=== PATIENT | female | born 1980 | race Caucasian/White ===

== ENCOUNTER 2023-05-12 10:59 | Emergency (ER) | payer BC ==
[2023-05-12] MEDS ORDERED: Acetaminophen 500 MG Tab PO STA (11:37)
[2023-05-12] MEDS ORDERED: Ketorolac 30 MG/ML SDV IVPUSH STA (11:37)
[2023-05-12] MEDS ORDERED: Sodium Chloride 0.9% 1,000 ML IV STA (11:37)
[2023-05-12] MEDS ORDERED: Sodium Chloride 0.9% 10 ML Syringe FLUSH PRN (11:38)
[2023-05-12] MEDS ORDERED: Sodium Chloride 0.9% 2.5 ML Syringe FLUSH PRN (11:38)
[2023-05-12 11:45] LABS: BASOPHILS PERCENT AUTO 0.1 % (0.0-1.5); EOSINOPHILS ABSOLUTE AUTO 0.2 K/uL (0.0-0.7); EOSINOPHILS PERCENT AUTO 2.8 % (0.0-7.0); HEMATOCRIT 42.6 % (36.0-46.0); HEMOGLOBIN 14.5 g/dL (12.0-16.0); LYMPHOCYTES ABSOLUTE AUTO 2.5 K/uL (0.6-2.4); LYMPHOCYTES PERCENT AUTO 35.2 % (16.0-40.0); MEAN CORPUSCULAR HEMOGLOBIN 30.7 pg (27.0-32.0); MEAN CORPUSCULAR VOLUME 90.3 fL (80.0-98.0); MONOCYTES ABSOLUTE AUTO 0.4 K/uL (0.0-0.8); MONOCYTES PERCENT AUTO 5.9 % (0.0-15.0); NRBC ABSOLUTE 0 K/uL; PLATELET COUNT,PLT 195 K/uL (150-400); RED BLOOD CELL COUNT 4.72 M/uL (4.30-5.90)
[2023-05-12] MEDS ORDERED: oxyCODONE 5 MG Tab PO STA (12:15)
[2023-05-12 12:18] LABS: A/G RATIO 1.2 (0.9-1.6); ALBUMIN 3.8 g/dL (3.4-5.0); BILIRUBIN TOTAL 0.3 mg/dL (0.2-1.0); CALCIUM 8.9 mg/dL (8.5-10.1); CARBON DIOXIDE,CO2 24.6 mmol/L (21.0-32.0); CREATININE 0.9 mg/dL (0.6-1.0); EST CRCL DRUG DOSING (CG) 70.32 mL/min; POTASSIUM,K 4.2 mmol/L (3.5-5.1); PROTEIN TOTAL,TP 6.9 g/dL (6.4-8.2)
[2023-05-12 13:12] LABS: APPEARANCE,URINE CLEAR; BILIRUBIN,URINE NEGATIVE (NEGATIVE); GLUCOSE,URINE NEGATIVE (NEGATIVE); KETONES,URINE NEGATIVE (NEGATIVE); LEUKOCYTE ESTERASE,URINE NEGATIVE (NEGATIVE); NITRITE,URINE NEGATIVE (NEGATIVE); OCCULT BLOOD,URINE NEGATIVE (NEGATIVE); PROTEIN,URINE NEGATIVE (NEGATIVE); UROBILINOGEN,URINE 0.2 EU/dL (<2.0)
[2023-05-12 13:16] LABS: COLOR,URINE STRAW
== END 2023-05-12 16:41 | disposition home or self-care (01) ==
LOC: MW.ED 10:59
DX: R10.32 Left lower quadrant pain (principal); Z87.42 Personal history of other diseases of the female genital tract
CPT/HCPCS: 36415; 76856; 80053; 81003; 81025; 85025; 96361; 96374; 99284; A9270; J1885; J3490; J7030

== ENCOUNTER 2023-10-13 06:31 | Day surgery (SDC) | payer BC ==
[~2023-10-13 06:31] MED LIST: Lactated Ringers 1,000 ML IV SCH
[2023-10-13 06:56] LABS: HEMATOCRIT 41.3 % (37.0-47.0); HEMOGLOBIN 14.4 g/dL (12.0-16.0); MEAN CORPUSCULAR HEMOGLOBIN 30.9 pg (28.0-32.0); MEAN CORPUSCULAR HGB CONC 34.9 g/dL (32.0-36.0); MEAN CORPUSCULAR VOLUME 88.6 fL (83.0-99.0); MEAN PLATELET VOLUME 9.5 fL (9.4-12.3); PLATELET COUNT,PLT 197 K/uL (150-400); RED BLOOD CELL COUNT 4.66 M/uL (4.10-5.30); WHITE BLOOD CELL COUNT,WBC 7.77 K/uL (3.9-11.3)
[2023-10-13] MEDS ORDERED: Scopalamine 1mg/3day Transdermal Patch TRDERM PRN (07:24)
[2023-10-13] MEDS ORDERED: Bupivacaine 0.25% 30 ML SDV ONE ×2 (07:31→07:32)
[2023-10-13] MEDS ORDERED: EPINEPHrine 1 MG/1 ML Amp ONE (07:32)
[2023-10-13] MEDS ORDERED: Ropivacaine 0.5% 5 MG/ML 30 ML SDV ONE (07:32)
[2023-10-13] MEDS ORDERED: Rocuronium Bromide 50 MG/5 ML Syringe ONE (07:37)
[2023-10-13] MEDS ORDERED: Ondansetron 4 MG/2 ML SDV ONE (07:37)
[2023-10-13] MEDS ORDERED: Ketorolac 30 MG/ML SDV ONE (07:37)
[2023-10-13] MEDS ORDERED: Lidocaine 2% 5 ML SDV ONE (07:37)
[2023-10-13] MEDS ORDERED: Sugammadex Sodium 200 MG/2 ML VIAL ONE (07:37)
[2023-10-13] MEDS ORDERED: Dexamethasone 4 MG/ML 5 ML MDV ONE (07:37)
[2023-10-13] MEDS ORDERED: Propofol 200 MG/20 ML SDV ONE (07:38)
[2023-10-13] MEDS ORDERED: fentaNYL 100 MCG/2 ML SDV ONE (07:38)
[2023-10-13] MEDS ORDERED: droPERidol 5 MG/2 ML SDV IVPUSH PRN (07:42)
[2023-10-13] MEDS ORDERED: fentaNYL 50 MCG/ML SDV IVPUSH PRN (07:42)
[2023-10-13] MEDS ORDERED: Morphine 2 MG/ML SYRINGE IVPUSH PRN (07:42)
[2023-10-13] MEDS ORDERED: Ondansetron 4 MG/2 ML SDV IVPUSH PRN (07:42)
[2023-10-13] MEDS ORDERED: HYDROmorphone 1 MG/ML Syringe IVPUSH PRN (07:42)
[2023-10-13] MEDS ORDERED: Albuterol 0.083% 2.5 MG/3 ML Neb Soln NEB PRN (07:42)
[2023-10-13] MEDS ORDERED: Naloxone 0.4 MG/ML SDV IVPUSH PRN (07:42)
[2023-10-13] MEDS ORDERED: Metoclopramide 10 MG/2 ML SDV IVPUSH PRN (07:42)
== END 2023-10-13 10:47 | disposition home or self-care (01) ==
LOC: MW.SDS 06:31
PROVIDERS: ATTEND Obstetrics & Gynecology
DX: N80.329 Endometriosis of the posterior cul-de-sac, unspecified depth (principal); K46.9 Unspecified abdominal hernia without obstruction or gangrene; N76.0 Acute vaginitis; E78.5 Hyperlipidemia, unspecified; F41.9 Anxiety disorder, unspecified; F32.A Depression, unspecified; Z90.49 Acquired absence of other specified parts of digestive tract; G43.909 Migraine, unspecified, not intractable, without status migrainosus; Z79.899 Other long term (current) drug therapy; Z98.890 Other specified postprocedural states; Z88.0 Allergy status to penicillin
CPT/HCPCS: 36415; 49321; 84703; 85027; A9270; C1729; J0171; J0665; J1100; J1885; J2704; J2795; J3010; J3490; J7120; J2405

== ENCOUNTER 2023-11-18 08:26 | Day surgery (SDC) | payer BC ==
[2023-11-18] MEDS: Lactated Ringers 1,000 ML IV SCH (08:55)
[2023-11-18] MEDS ORDERED: Propofol 200 MG/20 ML SDV ONE ×3 (09:15→13:21)
[2023-11-18] MEDS ORDERED: fentaNYL 250 MCG/5 ML SDV ONE (09:15)
[2023-11-18] MEDS ORDERED: propofoL 0 ML ONE (09:15)
[2023-11-18] MEDS ORDERED: Rocuronium Bromide 50 MG/5 ML Syringe ONE (09:19)
[2023-11-18] MEDS ORDERED: Morphine 2 MG/ML SYRINGE IVPUSH PRN (09:47)
[2023-11-18] MEDS ORDERED: Albuterol 0.083% 2.5 MG/3 ML Neb Soln NEB PRN (09:47)
[2023-11-18] MEDS ORDERED: Naloxone 0.4 MG/ML SDV IVPUSH PRN (09:47)
[2023-11-18] MEDS ORDERED: droPERidol 5 MG/2 ML SDV IVPUSH PRN (09:47)
[2023-11-18] MEDS ORDERED: Ondansetron 4 MG/2 ML SDV IVPUSH PRN ×2 (09:47→13:51)
[2023-11-18] MEDS ORDERED: Metoclopramide 10 MG/2 ML SDV IVPUSH PRN (09:47)
[2023-11-18] MEDS ORDERED: propofoL 100 ML ONE (09:59)
[2023-11-18] MEDS ORDERED: Methylene Blue 100 MG/10 ML SDV ONE (11:00)
[2023-11-18] MEDS ORDERED: Bupivacaine 0.25% 30 ML SDV ONE ×2 (11:00→12:10)
[2023-11-18] MEDS ORDERED: Phenylephrine HCl 0.5 MG/5 ML AMP ONE (11:43)
[2023-11-18] MEDS ORDERED: Scopalamine 1mg/3day Transdermal Patch ONE (11:44)
[2023-11-18] MEDS ORDERED: Dexamethasone 4 MG/ML 5 ML MDV ONE (11:45)
[2023-11-18] MEDS ORDERED: Ondansetron 4 MG/2 ML SDV ONE (11:45)
[2023-11-18] MEDS ORDERED: ceFAZolin 2 GM Vial ONE (11:46)
[2023-11-18] MEDS ORDERED: Magnesium Sulfate (4.06 MEQ/ML) 5 GM/10 ML SDV ONE (11:57)
[2023-11-18] MEDS ORDERED: Ketamine 500 mg/10 ML MDV ONE (12:02)
[2023-11-18] MEDS ORDERED: Bupivacaine 0.5%/EPINEPHrine 1:200,000 30 ML SDV ONE (12:09)
[2023-11-18] MEDS ORDERED: Sugammadex Sodium 200 MG/2 ML VIAL IV ONE (12:43)
[2023-11-18] MEDS ORDERED: Ketorolac 30 MG/ML SDV ONE (12:43)
[2023-11-18] MEDS ORDERED: Fluorescein 5 ML Vial ONE (12:44)
[2023-11-18] MEDS ORDERED: Promethazine 25 MG/ML SDV IM PRN (13:51)
[2023-11-18] MEDS: fentaNYL 50 MCG/ML SDV IVPUSH PRN (13:53)
[2023-11-18] MEDS: HYDROmorphone 1 MG/ML Syringe IVPUSH PRN (13:55)
[2023-11-18] MEDS ORDERED: ALPRAZolam 0.25 MG Tab PO PRN (13:56)
[2023-11-18] MEDS: oxyCODONE 5 MG Tab PO PRN (15:36)
[2023-11-18] MEDS: Ketorolac 30 MG/ML SDV IVPUSH SCH (18:38)
[2023-11-18] MEDS: Ketorolac 30 MG/ML SDV IVPUSH ONE (20:02)
[2023-11-18] MEDS: Acetaminophen 325 MG Tab PO PRN (20:03)
[2023-11-19 06:23] LABS: BASOPHILS ABSOLUTE AUTO 0.01 K/uL (0.00-0.20); BASOPHILS PERCENT AUTO 0.1 % (0.0-1.0); EOSINOPHILS ABSOLUTE AUTO 0.01 K/uL (0.00-0.45); EOSINOPHILS PERCENT AUTO 0.1 % (0.0-6.0); HEMATOCRIT 39.6 % (37.0-47.0); HEMOGLOBIN 13.9 g/dL (12.0-16.0); IMMATURE GRAN ABSOLUTE AUTO 0.05 K/uL (0.00-0.05); IMMATURE GRAN PERCENT AUTO 0.4 % (0.0-0.4); LYMPHOCYTES ABSOLUTE AUTO 1.39 K/uL (1.00-4.80); LYMPHOCYTES PERCENT AUTO 10.9 % (24.0-44.0); MEAN CORPUSCULAR HEMOGLOBIN 31.2 pg (28.0-32.0); MEAN CORPUSCULAR HGB CONC 35.1 g/dL (32.0-36.0); MEAN CORPUSCULAR VOLUME 88.8 fL (83.0-99.0); MEAN PLATELET VOLUME 10.2 fL (9.4-12.3); MONOCYTES ABSOLUTE AUTO 0.73 K/uL (0.00-0.80); MONOCYTES PERCENT AUTO 5.7 % (0.0-8.0); NEUTROPHILS ABSOLUTE AUTO 10.51 K/uL (1.80-7.70); NEUTROPHILS PERCENT AUTO 82.8 % (41.0-71.0); PLATELET COUNT,PLT 201 K/uL (150-400); RED BLOOD CELL COUNT 4.46 M/uL (4.10-5.30)
[2023-11-19 06:48] LABS: CALCIUM 8.4 mg/dL (8.5-10.1); CARBON DIOXIDE,CO2 26.3 mmol/L (21.0-32.0); EST CRCL DRUG DOSING (CG) 63.28 mL/min; POTASSIUM,K 4.6 mmol/L (3.5-5.1)
[2023-11-19] MEDS ORDERED: buPROPion 150 MG Tab.SR PO SCH (09:00)
== END 2023-11-19 09:20 | disposition home or self-care (01) ==
LOC: MW.SDS 08:26 → MW.MS 15:13 → MW.SDS 11-19 09:20
PROVIDERS: ATTEND Obstetrics & Gynecology
DX: N80.3B2 Deep endometriosis of the left uterosacral ligament (principal); Z01.812 Encounter for preprocedural laboratory examination; Z79.899 Other long term (current) drug therapy; Z88.0 Allergy status to penicillin
CPT/HCPCS: 36415; 58552; 80048; 85025; A9270; J0131; J0665; J0690; J1100; J1170; J1885; J2371; J2704; J3010; J3475; J3490; J7030; J7120; Q9968; J2405